=== PATIENT | female | born 1965 ===

== ENCOUNTER → 2018-11-22 | Outpatient (REF) ==
--- NOTE | 2018-11-22 15:42 | REP ---
PARTIAL LUMBAR SPINE, THREE VIEWS: HISTORY: Degenerative disc disease. There is no acute fracture or subluxation. There is an old compression fracture of the L1 vertebral body with minimal height loss. The L4-5 and L5-S1 intervertebral discs are decreased in height consistent with disc degeneration. Osteophytes are present on L3 and L4. IMPRESSION: Degenerative change as described above. Electronically Signed by Cj Jones MD 11/22/2018 03:45 P
== END ==
LOC: M SMT 14:59
PROVIDERS: ATTEND Internal Medicine
DX: M51.37 Other intervertebral disc degeneration, lumbosacral region (principal); M25.78 Osteophyte, vertebrae; Z87.81 Personal history of (healed) traumatic fracture